=== PATIENT | female | born 2000 ===

== ENCOUNTER 2020-06-02 02:41 | Inpatient (IN) | payer SELFPAY ==
[2020-06-02] MEDS ORDERED: AMPICILLIN/NS 2 GM/100 ML 2 GM/100 ML BAG IV ONE (04:41)
[2020-06-02] MEDS ORDERED: MINERAL OIL 30 ML ORAL LIQD PO PRN (04:41)
[2020-06-02] MEDS ORDERED: LIDOCAINE (2%) 20 MG/1 ML VIAL 20 ML MDV INFILTRATI ONE (04:41)
[2020-06-02] MEDS ORDERED: ePHEDrine SULFATE 50 MG/1 ML INJ IV PRN ×2 (04:41→09:00)
[2020-06-02] MEDS ORDERED: TERBUTALINE 1 MG/1 ML INJ SUB-Q PRN (04:41)
[2020-06-02] MEDS ORDERED: BUTORPHANOL 2 MG/1 ML INJ IV PRN ×2 (04:41)
[2020-06-02] MEDS ORDERED: ONDANSETRON 4 MG/2 ML INJ IV PRN ×2 (04:41→16:40)
[2020-06-02] MEDS ORDERED: OXYTOCIN DRIP 30 UNITS/500 ML BAG IV SCH ×2 (05:00→11:00)
[2020-06-02] MEDS: LACTATED RINGERS 1,000 ML IV SCH ×2 (06:25→10:08)
--- NOTE | 2020-06-02 08:34 | Anesthesia Consultation ---
Anesthesia Consult and Med Hx Date of service: 06/02/20 - Airway Anesthetic Teeth Evaluation: Good ROM Head & Neck: Adequate Mental/Hyoid Distance: Adequate Mallampati Class: Class II Intubation Access Assessment: Probably Good - Pulmonary Exam CTA: Yes - Cardiac Exam Cardiac Exam: RRR - Pre-Operative Health Status ASA Pre-Surgery Classification: ASA3 Proposed Anesthetic Plan: Epidural - Cardiovascular System Hx Hypertension: Yes - Other Systems Hx Alcohol Use: No
[2020-06-02] MEDS ORDERED: fentaNYL-BUPIV 2 MCG/ML-0.125% 200 MCG/100 ML BAG EPIDURAL SCH (09:00)
[2020-06-02] MEDS ORDERED: NALOXONE 2 MG/2 ML INJ IV PRN (09:00)
[2020-06-02 09:47] LABS: Hematocrit 32.9 % (30.3-42.9); Mean Corpuscular HGB Conc 33 % (30-34); Mean Corpuscular Volume 83 fl (79-97); Platelet Count 305 K/mm3 (140-440); Red Blood Count 3.97 M/mm3 (3.65-5.03); Red Cell Distribution Width 15.3 % (13.2-15.2)
--- NOTE | 2020-06-02 09:55 | Progress Note ---
Labor Epidural - Labor Epidural Start Time: 09:10 Stop Time: :19 Performed by:: ARTI ROBLEDO Procedure: Patient is requesting epidural for labor pain. H&P, and labs reviewed. Procedure explained, questions answered, consent obtained. Patient in sitting position with blood pressure cuff and pulse ox on and working. Timeout performed immediately before start of procedure. Sterile chlorahexadine 0.5% prep/drape. 3 mL 1% lidocaine skin wheal at L[3]-L[4]. 18-gauge Tuohy epidural needle advanced to [id number] with saline at [7] cm. Epidural dexmedetomidine [30] mcg administered. Epidural catheter advanced to [12] cm, negative aspiration for blood and csf, negative test dose 3 ml 1.5% lidocaine with epinephrine. Sterile steri-strips and tegaderm applied, followed by tape reinforcement. Patient tolerated procedure well.
[2020-06-02] MEDS ORDERED: AMPICILLIN/NS 1 GM/50 ML 1 GM/50 ML BAG IV SCH (11:00)
--- NOTE | 2020-06-02 11:18 | History and Physical Report ---
History of Present Illness Date of examination: 06/02/20 Date of admission: 06/02/20 04:41 Chief complaint: c/o uc and leaking of vag fluids History of present illness: 19 y/o female presented to [facility] at 40 wks with c/o LOF since 1:30am and uc. She admitted to active FM. Pt initiated her pnc at [facility] at 30.5 wks and only had 2 visits. She has a hx of mild anemia, LGSIL, neg HPV, and had a uti during preg which was treated with Ampi. Surgical/social/Family hx unremarkable. GBS unknown. Pt was admitted to L&D for delivery. Lab: A pos AB screen neg Rubella immune, VDRL neg, HBsAg neg HIV neg Chly & GC neg 1 hr gtt 123 Past History Past Medical History: other (anemia,uti) Past Surgical History: no surgical history SITE DIRECTOR History: abnormal PAP smear Family/Genetic History: none Social history: no significant social history - Obstetrical History Expected Date of Delivery: 06/02/20 Actual Gestation: 40 Week(s) 0 Day(s) : 1 Para: 0 Medications and Allergies Allergies Allergy/AdvReac Type Severity Reaction Status Date / Time No Known Allergies Allergy Unverified 06/02/20 03:08 Active Meds: Active Medications Butorphanol Tartrate (Butorphanol 2 Mg/1 Ml Inj) 2 mg IV Q2H PRN PRN Reason: Pain , Severe (7-10) Butorphanol Tartrate (Butorphanol 2 Mg/1 Ml Inj) 1 mg IV Q2H PRN PRN Reason: Pain, Moderate(4-6) LABOR PAIN Last Admin: 06/02/20 07:34 Dose: 1 mg Documented by: Ephedrine Sulfate (Ephedrine Sulfate 50 Mg/1 Ml Inj) 10 mg IV Q2M PRN PRN Reason: Hypotension Lactated Ringer's (Lactated Ringers) 1,000 mls @ 125 mls/hr IV DIRECT LORI Last Admin: 06/02/20 10:08 Dose: 125 mls/hr Documented by: Oxytocin/Sodium Chloride (Pitocin/Ns 30 Unit/500ml) 30 units in 500 mls @ 40 mls/hr IV TITR LORI; Protocol Fentanyl/Bupivacaine/Sodium Chlor (Fentanyl-Bupiv 2 Mcg/Ml-0.125%) 200 mcg in 100 mls @ 12 mls/hr EPIDURAL TITR LORI; Protocol Last Admin: 06/02/20 10:08 Dose: 12 mls/hr Documented by: Oxytocin/Sodium Chloride (Pitocin/Ns 30 Unit/500ml) 30 units in 500 mls @ 0 mls/hr IV TITR LORI; Protocol Ampicillin Sodium (Ampicillin/Ns 1 Gm/50 Ml) 1 gm in 50 mls @ 100 mls/hr IV Q4H LORI; Protocol Mineral Oil (Mineral Oil 30 Ml Oral Liqd) 30 ml PO QHS PRN PRN Reason: Constipation Naloxone HCl (Naloxone 2 Mg/2 Ml Inj) 0.2 mg IV Q5M PRN PRN Reason: Respiratory sedation Ondansetron HCl (Ondansetron 4 Mg/2 Ml Inj) 4 mg IV Q8H PRN PRN Reason: Nausea And Vomiting Terbutaline Sulfate (Terbutaline 1 Mg/1 Ml Inj) 0.25 mg SUB-Q ONCE PRN PRN Reason: Hyperstimulation/Hypertonicity Review of Systems All systems: negative Eyes: deferred Ears, nose, mouth and throat: deferred Breasts: normal Genitourinary: normal appearance Rectal Exam: deferred - Vital Signs Vital signs: Vital Signs Pulse Pulse Ox 110 H 99 06/02/20 03:01 06/02/20 03:01 Temp Pulse Resp BP Pulse Ox 98.1 F 113 H 18 104/56 100 06/02/20 07:39 06/02/20 10:57 06/02/20 07:39 06/02/20 10:57 06/02/20 10:55 - Physical Exam Breasts: Positive: normal Abdomen: Positive: normal appearance, soft, normal bowel sounds Genitourinary (Female): Positive: normal external genitalia, normal perenium Vulva: both: normal Vagina: Positive: normal moisture Uterus: Positive: enlarged, normal contour, other (gravid) Adnexa: both: normal Anus/Rectum: Positive: normal perianal skin Extremities: Positive: normal - Obstetrical FHR: auscultation normal, category 1 Uterine Contraction Monitor Mode: External Cervical Dilatation: 6 Cervical Effacement Percentage: 80 station: -2 Uterine Contraction Frequency (min): q3-4 Uterine Contraction Pattern: Regular Uterine Tone Measurement Phase: Resting Uterine Contraction Intensity: Strong/Firm Results Result Diagrams: 06/02/20 05:05 Abnormal lab results 06/02/20 06/02/20 Range/Units 03:10 05:05 WBC 13.6 H (4.5-11.0) K/mm3 RDW 15.3 H (13.2-15.2) % Membranes Rupture Positive A (Negative) All other labs normal. Assessment and Plan A: IUP@ 40 wks No care GBS unknown Mild anemia LSIL on pap P: Admit to L&D Continuous monitoring GBS prophylaxis Pain med/Epidural prn Anticipate - Patient Problems (1) Term Current Visit: Yes Status: Acute (2) Mild anemia Current Visit: Yes Status: Acute (3) No care in current Current Visit: Yes Status: Acute
[2020-06-02] MEDS ORDERED: WITCH HAZEL/ GLYCERIN PAD TP PRN (16:40)
[2020-06-02] MEDS ORDERED: diphenhydrAMINE 25 MG CAP PO PRN (16:40)
[2020-06-02] MEDS ORDERED: LANOLIN/ZINC/DIMETHICONE (LANSINOH) 7 GM TP PRN (16:40)
[2020-06-02] MEDS ORDERED: PROMETHAZINE 25 MG TAB PO PRN (16:40)
[2020-06-02] MEDS ORDERED: MAGNESIUM HYDROXIDE (MOM) ORAL LIQD UDC PO PRN (16:40)
[2020-06-02] MEDS ORDERED: PROMETHAZINE 25 MG RECT SUPP PR PRN (16:40)
--- NOTE | 2020-06-02 17:13 | Procedure Note ---
OB Delivery Note - Delivery Date of Delivery: 06/02/20 Surgeon: SEDA MONTOYA Estimated blood loss: other (150cc) - Vaginal Delivery presentation: vertex Delivery position: OA Delivery induction: none Delivery augmentation: pitocin Delivery monitor: external FHT, external uterine Route of delivery: Delivery placenta: spontaneous Delivery cord: 3 umbilical vessels, other (loose body cord) Episiotomy: none Delivery laceration: none Anesthesia: epidural Delivery comments: Called to for delivery. SVE 10/100%/0 and pushing begin. of a viable female in OA position over an intact perineum. Head and shoulders were delivered with ease. Loose body cord was slipped over infants body. Immediately after delivery baby was placed on mom's chest/abd for skin to skin bonding. Delayed cord clamping x 90 sec while NICU nurse dried and stimulated baby. Cord was doubled clamped and FOB was allowed to cut the cord. was then taken to the warmer by NICU nurse for an asses. 9/9. Spontaneous delivery of an intact placenta with 3CV. FF@ U2 with fundal massage and IV Pitocin. EBL 150cc. FW 3627 Gms. Mom and baby were left in stable condition with L&D nurse. - A at 1 minute: 9 at 5 minutes: 9 (FW 3627 GMS) Infant Gender: Female
[2020-06-02] MEDS: IBUPROFEN 600 MG TAB PO SCH (23:00)
[2020-06-03] MEDS: IBUPROFEN 600 MG TAB PO SCH ×3 (05:00→17:28)
[2020-06-03 09:06] LABS: Hematocrit 31.1 % (30.3-42.9)
--- NOTE | 2020-06-03 12:41 | Discharge Summary ---
Providers - Providers Date of Admission: 06/02/20 04:41 Date of discharge: 06/03/20 (1700) Attending physician: LAWRENCE BLACK Primary care physician: LAWRENCE BLACK Hospitalization Reason for admission: rupture of membranes Delivery: Episiotomy: none Laceration: none Incision: normal Other procedures: none complications: none Discharge diagnosis: IUP at term delivered [place] baby: female Hospital course: See admission H&P; OB delivery summary and PP progress notes Condition at discharge: Good Disposition: DC-01 TO HOME OR SELFCARE - Discharge Diagnoses (1) Status post normal vaginal delivery Status: Acute (2) Anemia Status: Acute Qualifiers: Anemia type: other cause Other causes of anemia: acute posthemorrhagic Qualified Code(s): D62 - Acute posthemorrhagic anemia Comment: Asymptomatic Plan - Provider Discharge Summary Activity: routine, no sex for 6 weeks, no heavy lifting 4 weeks, no strenuous exercise Diet: other (Iron rich diet) Instructions: routine Additional instructions: [] Smoking cessation referral if applicable(refer to patient education folder for contact #) [] Refer to [facility]'s [facility] Center Booklet Call your doctor immediately for: * Fever > 100.5 * Heavy vaginal bleeding ( >1 pad per hour) * Severe persistent headache * Shortness of breath * Reddened, hot, painful area to leg or breast * Drainage or odor from incision. * Keep incision clean and dry at all times and follow doctor's instructions regarding bathing/showering - Follow up plan Follow up: LAWRENCE BLACK MD [Primary Care Provider] - 6 Weeks
--- NOTE | 2020-06-03 13:52 | Post Anesthesia Evaluation ---
- Post Anesthesia Evaluation Patient Participated: Yes Airway Patent: Yes Stable Respiratory Function: Yes Nausea/Vomiting: No Temp > 96.8F: Yes Pain Manageable: Yes Adequeate Hydration: Yes Anesthesia Complications: No Block Receding Appropriately: Yes
[2020-06-03 17:21] VITALS: BP 123/90
== END 2020-06-03 17:52 | disposition home or self-care (01) | DRG 806 ==
LOC: TRG 02:41 → APU 02:51 → TRG 04:41 → LD 04:41 → OB 18:20
PROVIDERS: ADMIT Obstetrics & Gynecology; ATTEND Obstetrics & Gynecology
PROC: 10E0XZZ Delivery of Products of Conception, External Approach (ICD-10-PCS; principal; 2020-06-02)
PROC: 3E0R3BZ Introduction of Anesthetic Agent into Spinal Canal, Percutaneous Approach (ICD-10-PCS; 2020-06-02)
PROC: 00HU33Z Insertion of Infusion Device into Spinal Canal, Percutaneous Approach (ICD-10-PCS; 2020-06-02)
DX: O10.92 Unspecified pre-existing hypertension complicating childbirth (principal); D62 Acute posthemorrhagic anemia; Z37.0 Single live birth; O99.02 Anemia complicating childbirth; Z20.822 Contact with and (suspected) exposure to COVID-19; Z3A.40 40 weeks gestation of pregnancy
CPT/HCPCS: 36415; 84112; 85014; 85018; 85027; 86592; 86850; 86900; 86901; G0378; J0290; J0595; J2590; J7120; U0003